=== PATIENT | male | born 1960 | race Caucasian/White ===

== ENCOUNTER 2021-08-01 20:14 | Emergency (ER) | payer SELFPAY ==
[~2021-08-01] VITALS: Ht 144.8 cm; Wt 55.4 kg
[2021-08-01 20:26] VITALS: BP 180/114
== END 2021-08-02 01:06 | disposition left against medical advice (07) ==
LOC: EDBD → ER 20:14
DX: Z53.21 Procedure and treatment not carried out due to patient leaving prior to being seen by health care provider (principal)
CPT/HCPCS: 93005

== ENCOUNTER 2021-08-03 16:25 | Inpatient (IN) | payer MEDICAID ==
[~2021-08-03] VITALS: Ht 157.5 cm; Wt 54.0 kg
[2021-08-03] MEDS ORDERED: MORPHINE SULFATE 4 MG/ML CPJ (NOT FOR IM USE) IV STA (17:33)
[2021-08-03] MEDS ORDERED: SODIUM CHLORIDE 0.9% 1,000 ML IV ONE ×2 (17:45→21:15)
[2021-08-03 18:09] LABS: HEMATOCRIT. 41.2 % (42.0-52.0); MEAN CORPUSCULAR HEMOGLOBIN 31.1 pg (28.0-32.0); MEAN CORPUSCULAR VOLUME 91.7 fL (80.0-94.0); MEAN PLATELET VOLUME 9.8 fl (7.4-10.4); PLATELET 400 x1000/uL (130-400); RED BLOOD CELL COUNT 4.49 mill/uL (4.7-6.1); RED CELL DISTRIBUTION WIDTH 13.8 % (11.6-14.6)
[2021-08-03 18:12] LABS: CHLORIDE 106 mEq/L (98-107)
[2021-08-03 18:36] LABS: PLATELET ESTIMATE NORMAL
[2021-08-03 18:37] LABS: CLARITY URINE CLOUDY (CLEAR); COLOR URINE DARK YELLOW (YELLOW); KETONES URINE TRACE (NEGATIVE); LEUKOCYTE ESTERASE URINE TRACE (NEGATIVE); NITRITE URINE NEGATIVE (NEGATIVE); OCCULT BLOOD URINE 2+ (NEGATIVE); PH URINE 5.5 (4.5-8.0); PROTEIN URINE 3+ (NEGATIVE); SPECIFIC GRAVITY URINE 1.034 (1.005-1.030)
[2021-08-03] MEDS ORDERED: MORPHINE SULFATE 4 MG/ML CPJ (NOT FOR IM USE) IV ONE (21:15)
[2021-08-04] MEDS: KETOROLAC 15MG/ML VIAL IV PRN ×2 (01:20→16:32)
[2021-08-04] MEDS: CLONIDINE 0.1MG TABLET PO PRN ×2 (01:21→11:38)
[2021-08-04] MEDS ORDERED: NALOXONE HCL 0.4MG/ML VIAL IV PRN (08:30)
[2021-08-04] MEDS ORDERED: ONDANSETRON HCL 4MG/2ML INJ IV PRN (08:30)
[2021-08-04 09:17] LABS: *AMPHETAMINES SCREEN URINE NEGATIVE (NEGATIVE); *BARBITURATES SCREEN URINE NEGATIVE (NEGATIVE); *BENZODIAZEPINES SCREEN URINE NEGATIVE (NEGATIVE); *COCAINE SCREEN URINE NEGATIVE (NEGATIVE)
[2021-08-04 09:18] LABS: CANNABINOID URINE SCREEN NEGATIVE (NEGATIVE); METHADONE URINE SCREEN NEGATIVE (NEGATIVE); OPIATES URINE SCREEN NEGATIVE (NEGATIVE); PHENCYCLIDINE URINE SCREEN NEGATIVE (NEGATIVE)
[2021-08-04] MEDS: PIPERACILLIN/TAZ 3.375G PREMIX 50 ML IV SCH ×2 (09:33→14:25)
[2021-08-04] MEDS: SODIUM CHLORIDE 0.45% 1,000 ML IV SCH ×2 (09:40→21:41)
[2021-08-04] MEDS: AMLODIPINE 10MG TABLET PO SCH (09:40)
[2021-08-04] MEDS: HYDROCODONE/ACETAMINOPHEN 5/325MG TABLET PO PRN (11:11)
[2021-08-04 16:00] VITALS: BP 147/77
[2021-08-04] MEDS: ACETAMINOPHEN 325MG TABLET PO PRN (17:32)
[2021-08-04 20:00] VITALS: BP 135/58
[2021-08-04] MEDS ORDERED: INFLUENZA VACCINE 05/PF 0.5 ML SYRINGE IM ONE (21:00)
[2021-08-04] MEDS: PIPERACILLIN/TAZOBACTAM 3.375 G in DEXTROSE 5% WATER 50 ML IV SCH (21:41)
[2021-08-05] VITALS: BP 169/48
[2021-08-05] MEDS: KETOROLAC 15MG/ML VIAL IV PRN ×3 (01:10→13:26)
[2021-08-05 04:00] VITALS: BP 156/60
[2021-08-05] MEDS: HYDROCODONE/ACETAMINOPHEN 5/325MG TABLET PO PRN ×4 (05:22→21:23)
[2021-08-05] MEDS: PIPERACILLIN/TAZOBACTAM 3.375 G in DEXTROSE 5% WATER 50 ML IV SCH ×3 (05:22→21:22)
[2021-08-05] MEDS: AMLODIPINE 10MG TABLET PO SCH (07:36)
[2021-08-05 08:00] VITALS: BP 166/88
[2021-08-05 08:00] LABS: CHLORIDE 102 mEq/L (98-107)
[2021-08-05 08:09] LABS: HEMATOCRIT. 36.8 % (42.0-52.0); HEMOGLOBIN. 12.6 g/dL (14.0-18.0); MEAN CORPUSCULAR HEMOGLOBIN 31.3 pg (28.0-32.0); MEAN CORPUSCULAR VOLUME 91.6 fL (80.0-94.0); MEAN PLATELET VOLUME 9.6 fl (7.4-10.4); PLATELET 383 x1000/uL (130-400); RED BLOOD CELL COUNT 4.02 mill/uL (4.7-6.1); RED CELL DISTRIBUTION WIDTH 13.5 % (11.6-14.6)
[2021-08-05] MEDS ORDERED: POTASSIUM CHLORIDE 20MEQ TABLET SR PO SCH (10:30)
[2021-08-05] MEDS ORDERED: LACTULOSE 20G/30ML UDC PO PRN (11:30)
[2021-08-05] MEDS: DOCUSATE SODIUM 250MG CAPSULE PO SCH (11:42)
[2021-08-05 12:00] VITALS: BP 140/80
[2021-08-05 16:00] VITALS: BP 138/78
[2021-08-05 18:26] LABS: PLATELET ESTIMATE NORMAL
[2021-08-05 20:00] VITALS: BP 158/81
[2021-08-06] VITALS: BP 152/67
[2021-08-06] MEDS: SODIUM CHLORIDE 0.45% 1,000 ML IV SCH (00:55)
[2021-08-06] MEDS: KETOROLAC 15MG/ML VIAL IV PRN (00:56)
[2021-08-06 03:54] VITALS: BP 139/80
[2021-08-06] MEDS: PIPERACILLIN/TAZOBACTAM 3.375 G in DEXTROSE 5% WATER 50 ML IV SCH ×3 (06:02→22:57)
[2021-08-06] MEDS: HYDROCODONE/ACETAMINOPHEN 5/325MG TABLET PO PRN ×4 (06:02→23:04)
[2021-08-06 08:00] VITALS: BP 173/94
[2021-08-06] MEDS: DOCUSATE SODIUM 250MG CAPSULE PO SCH (08:59)
[2021-08-06] MEDS: AMLODIPINE 10MG TABLET PO SCH (09:00)
[2021-08-06 12:00] VITALS: BP 141/73
[2021-08-06] MEDS ORDERED: METF-414 MT (12:23)
[2021-08-06 16:00] VITALS: BP 157/95
[2021-08-06 20:00] VITALS: BP 154/82
[2021-08-07] VITALS: BP 154/79
[2021-08-07 04:00] VITALS: BP 131/70
[2021-08-07] MEDS: PIPERACILLIN/TAZOBACTAM 3.375 G in DEXTROSE 5% WATER 50 ML IV SCH ×2 (06:25→13:26)
[2021-08-07] MEDS: HYDROCODONE/ACETAMINOPHEN 5/325MG TABLET PO PRN (06:36)
[2021-08-07 08:00] VITALS: BP 153/89
[2021-08-07] MEDS: AMLODIPINE 10MG TABLET PO SCH (09:13)
[2021-08-07] MEDS: DOCUSATE SODIUM 250MG CAPSULE PO SCH (09:13)
[2021-08-07 12:00] VITALS: BP 155/88
[2021-08-07] MEDS: ACETAMINOPHEN 325MG TABLET PO PRN (13:25)
[2021-08-07 16:12] VITALS: BP 146/78
[2021-08-07 17:38] VITALS: BP 146/78
[2021-08-07 18:14] LABS: BASOPHILS % 0.2 % (0.0-2.0); EOSINOPHILS % 0.5 % (0.0-5.0); HEMATOCRIT. 39.6 % (42.0-52.0); HEMOGLOBIN. 13.7 g/dL (14.0-18.0); LYMPHOCYTES % 7.4 % (20.0-50.0); MEAN CORPUSCULAR HEMOGLOBIN 31.4 pg (28.0-32.0); MEAN PLATELET VOLUME 8.7 fl (7.4-10.4); MONOCYTES % 9.9 % (2.0-8.0); PLATELET 423 x1000/uL (130-400); RED BLOOD CELL COUNT 4.35 mill/uL (4.7-6.1); RED CELL DISTRIBUTION WIDTH 13.5 % (11.6-14.6)
[2021-08-07 18:44] LABS: CHLORIDE 101 mEq/L (98-107)
== END 2021-08-07 19:00 | disposition home or self-care (01) | DRG 720 ==
LOC: ER 16:25 → MICUSO 22:33 → 6EST 08-04 16:05
PROVIDERS: ADMIT Internal Medicine; ATTEND Internal Medicine
DX: A41.9 Sepsis, unspecified organism (principal); K85.90 Acute pancreatitis without necrosis or infection, unspecified; E44.0 Moderate protein-calorie malnutrition; K29.80 Duodenitis without bleeding; E11.9 Type 2 diabetes mellitus without complications; I10 Essential (primary) hypertension; Z20.822 Contact with and (suspected) exposure to COVID-19; I16.0 Hypertensive urgency; K76.9 Liver disease, unspecified; Z68.21 Body mass index [BMI] 21.0-21.9, adult; Z95.828 Presence of other vascular implants and grafts
CPT/HCPCS: 36415; 71045; 74176; 80048; 80053; 80305; 81003; 83036; 85025; 87426; 90686; 93005; 93970; 99285; J1885; J2270; J2543; J7030; J7040; J7060